=== PATIENT | female | born 1935 | race Caucasian/White ===

== ENCOUNTER → 2016-06-19 | Day surgery (SDC) | payer MEDICARE ==
[~2016-06-19] MED LIST: BUPIVACAINE/EPINEPHRINE 0.25% PF 30 ML VIAL ONE; LACTATED RINGER'S 1000 ML INJ 1,000 ML ONE; ONDANSETRON HCL 4 MG/2 ML VIAL IV PUSH ONE; PROPOFOL 100 MG/10 ML INJ IV ONE; ceFAZolin INJ 1,000 MG VIAL ONE
--- NOTE | 2016-06-19 15:29 | TN ---
cc: DORIS SEVILLA MD DATE OF SURGERY: 06/19/2016 SURGEON: Doris Sevilla MD. DIAGNOSIS: 1. Left knee torn lateral meniscus 2. osteoarthritis. POSTOPERATIVE DIAGNOSIS 1. Left knee torn lateral meniscus 2. osteoarthritis. PROCEDURE Left knee arthroscopy, partial lateral meniscectomy. PROCEDURE IN DETAIL Informed consent was obtained, the patient was taken to the operating room and taken to the operating room and placed in supine position on operating room table, she was administered a general anesthesia by Dr. Boyce of the Anesthesia Department. The knee had a tourniquet applied to the thigh was then prepped with Betadine soap followed by Betadine paint. Draping commenced with sterile down sheet, sterile towel about the tourniquet, split sheet, stockinette was applied to foot and calf. This was wrapped with Coban extremity drape was applied. The hip was elevated maximum height. A time-out was held and confirmed. The leg was elevated and the tourniquet was inflated to 300 mmHg. The patient had been given a gram of Ancef prior to initiation of the operative procedure and prior to the inflation of the tourniquet. At that time the leg is allowed to flex over the side of the operating table. An 18 gauge spinal needle was placed in the region of the lateral infrapatellar portal. This region with infiltrated 4 cc of 0.25% Marcaine with epinephrine. The infiltration was also performed into the medial infrapatellar portal and the trans patellar tendon portal regions, small incision was made with 11-blade in the region of the trans patellar tendon portal inflow cannula was placed. A second incision was placed in the region of the lateral patellar portal and the arthroscopic cannulas placed. Diagnostic arthroscopy commenced immediate compartment examined. 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 There was some degenerative changes noted to the medial meniscus, however as the meniscus was inspected. There were no tears identified. At that time the scope was maneuvered over the intercondylar notch edge of the lateral compartment, the leg was placed in a figure four position. The lateral meniscus had a complex degenerative tear with a large flap in the lateral portion the anterior portion of the meniscus was somewhat macerated. There was a thin flimsy band of tissue in front of the popliteus tendon. When debridement was completed, it was decided that this was not adequate to allow preservation of the entire lateral meniscus and a subtotal meniscectomy was performed, utilizing upbiting basket forceps and Striker meniscal shaver. There were some grade 3 in areas of grade 4 chondromalacia noted on the lateral femoral condyle to a lesser extent the lateral tibial plateau. The scope was placed intercondylar notch anterior pressure cruciate ligaments appeared normal. The scope was placed in the posterior medial and posterior lateral compartments. These appeared normal. The leg was then extended and the scope was placed in suprapatellar pouch which appeared normal. Undersurface patella demonstrated a grade 2 change of chondromalacia as did the trochlear groove. Gentle debridement with a shaver was performed here and also in the medial compartment. At that time the knee was thoroughly irrigated and suctioned all cannulas were removed. Each portal was closed single 4-0 nylon interrupted stitch. Band-Aids, 4x4s Sof-Rol, Nabeel wrap were applied to the patient's knee. The patient tolerated the procedure well and was then taken to the Recovery Room in stable condition. At the completion of the procedure sponge and instrument counts, needle counts were correct. Estimated blood loss was less than 10 cc total tourniquet time was 29 minutes. A total of 6000 cc of sterile saline was utilized during this operative procedure. MD MATT Leija/shan /2:11 PM /3:19 PM
== END | disposition home or self-care (01) ==
LOC: ESDC 11:38
PROVIDERS: ATTEND Orthopaedic Surgery
DX: S83.272A Complex tear of lateral meniscus, current injury, left knee, initial encounter (principal); M17.12 Unilateral primary osteoarthritis, left knee
CPT/HCPCS: 01400; 29881; J0690; J2405; J3010; J7120